=== PATIENT | female | born 1990 | race Caucasian/White ===

== ENCOUNTER 2024-05-05 22:15 | Emergency (ER) | payer OTHER | END 2024-05-05 23:25 | disposition home or self-care (01) | LOC: KA.ED 22:15 | DX: G56.01 Carpal tunnel syndrome, right upper limb (principal); Z90.49 Acquired absence of other specified parts of digestive tract; Z88.2 Allergy status to sulfonamides; Z79.890 Hormone replacement therapy; Z79.899 Other long term (current) drug therapy | CPT/HCPCS: 99283 ==

== ENCOUNTER 2024-07-05 18:02 | Emergency (ER) | payer OTHER ==
[2024-07-05] MEDS: Sodium Chloride 0.9% 10 ML Syringe FLUSH PRN (19:14)
[2024-07-05] MEDS: Sodium Chloride 0.9% 1,000 ML IV ONE (19:17)
[2024-07-05] MEDS: Ondansetron 4 MG/2 ML SDV IVPUSH ONE ×2 (19:19→19:50)
[2024-07-05 19:24] LABS: BASOPHILS ABSOLUTE AUTO 0.01 10^3/uL (0.00-0.10); BASOPHILS PERCENT AUTO 0.1 % (0.0-1.0); EOSINOPHILS ABSOLUTE AUTO 0.03 10^3/uL (0.10-0.30); EOSINOPHILS PERCENT AUTO 0.4 % (1.0-3.0); HEMATOCRIT 45.8 % (37.0-47.0); HEMOGLOBIN 15.1 g/dL (12.0-16.0); IMMATURE GRAN ABSOLUTE AUTO 0.02 10^3/uL (0.00-0.04); IMMATURE GRAN PERCENT AUTO 0.2 % (0.0-0.4); LYMPHOCYTES ABSOLUTE AUTO 0.54 10^3/uL (1.00-4.00); LYMPHOCYTES PERCENT AUTO 6.4 % (20.0-40.0); MEAN CORPUSCULAR HEMOGLOBIN 26.6 pg (27.0-31.0); MEAN CORPUSCULAR VOLUME 80.8 fL (82.0-92.0); MEAN PLATELET VOLUME 8.8 fL (7.4-10.4); MONOCYTES ABSOLUTE AUTO 0.33 10^3/uL (0.10-0.80); MONOCYTES PERCENT AUTO 3.9 % (2.0-8.0); NEUTROPHILS ABSOLUTE AUTO 7.46 10^3/uL (2.50-7.00); PLATELET COUNT,PLT 310 10^3/uL (150-400); RED BLOOD CELL COUNT 5.67 10^6/uL (3.80-5.50); RED CELL DISTRIBUTION WIDTH 14.2 % (11.5-14.5); WHITE BLOOD CELL COUNT,WBC 8.39 10^3/uL (5.00-10.00)
[2024-07-05 19:32] LABS: APPEARANCE,URINE CLEAR (CLEAR); BILIRUBIN,URINE NEGATIVE (NEGATIVE); COLOR,URINE YELLOW (YELLOW); GLUCOSE,URINE NEGATIVE (NEGATIVE); KETONES,URINE NEGATIVE (NEGATIVE); LEUKOCYTE ESTERASE,URINE NEGATIVE (NEGATIVE); NITRITE,URINE NEGATIVE (NEGATIVE); OCCULT BLOOD,URINE SMALL (NEGATIVE); PROTEIN,URINE TRACE mg/dL (NEGATIVE); UROBILINOGEN,URINE 0.2 E.U./dL (0.2-1.0)
[2024-07-05 19:33] LABS: BACTERIA,URINE FEW /HPF (NONE TO FEW); EPITHELIAL CELLS,URINE RARE /LPF; MUCUS,URINE RARE /LPF (NEGATIVE); WBC,URINE 0-5 /HPF (0-5)
[2024-07-05 19:39] LABS: ALBUMIN 3.57 g/dL (3.40-5.00); ANION GAP 13.9 mmol/L (5-15); BILIRUBIN TOTAL 0.6 mg/dL (0.2-1.0); CALCIUM 8.2 mg/dL (8.7-10.3); CARBON DIOXIDE,CO2 26.7 mmol/L (21.0-32.0); CREATININE 0.69 mg/dL (0.51-1.17); EST CRCL DRUG DOSING (CG) 121.19 mL/min; POTASSIUM,K 3.6 mmol/L (3.5-5.1); PROTEIN TOTAL,TP 7.3 g/dL (6.4-8.2)
[2024-07-05] MEDS: diphenhydrAMINE 50 MG/ML SDV IVPUSH ONE (19:59)
[2024-07-05] MEDS: Ketorolac 30 MG/ML SDV IVPUSH ONE (20:01)
[2024-07-05] MEDS: Ondansetron 4 MG Tab.DIS PO ONE (20:11)
== END 2024-07-05 20:23 | disposition home or self-care (01) ==
LOC: KA.ED 18:02
DX: R19.7 Diarrhea, unspecified (principal); R11.10 Vomiting, unspecified; R51.9 Headache, unspecified; Z88.2 Allergy status to sulfonamides; Z79.899 Other long term (current) drug therapy; Z79.890 Hormone replacement therapy; Z90.49 Acquired absence of other specified parts of digestive tract
CPT/HCPCS: 80053; 81001; 85025; 96361; 96374; 96375; 96376; 99284-25; A9270-GY; J1200; J1885; J2405; J7030